=== PATIENT | male | born 1950 | race Caucasian/White ===

== ENCOUNTER → 2016-07-13 | Outpatient (CLI) | payer MEDICARE, BC ==
[2016-07-13 10:47] LABS: Potassium 4.9 mmol/L (3.5-5.1)
== END | disposition home or self-care (01) ==
LOC: LABWHC1 09:22
PROVIDERS: ATTEND Internal Medicine Cardiovascular Disease
DX: I48.2 Chronic atrial fibrillation (principal)
CPT/HCPCS: 36415; 80051; 82565; 84520

== ENCOUNTER 2016-07-22 07:49 | Day surgery (SDC) | payer MEDICARE, BC ==
[2016-07-16 14:49] VITALS: BMI 38.4
[~2016-07-22 07:49] MED LIST: LACTATED RINGERS 1,000 ML IV SCH; LIDOCAINE 1% 20 ML VIAL (10MG/ML) FOR IV START INTRADERMA PRN; SODIUM CHLORIDE 0.9% 1,000 ML IV SCH
[2016-07-22 08:25] LABS: Glucose,Whole Blood 126 mg/dL (75-99)
[2016-07-22 08:31] VITALS: TEMP 98.3
[2016-07-22] MEDS: BENZOCAINE SPRAY 100 APPLIC/CAN MUCOUS MEM ONE ×3 (08:42→09:00)
[2016-07-22] MEDS ORDERED: BENZOCAINE SPRAY 100 APPLIC/CAN MUCOUS MEM ONE ×2 (08:50→09:00)
[2016-07-22] MEDS ORDERED: PROPOFOL 10 MG/ML 20 ML VIAL IV ONE (08:51)
[2016-07-22] MEDS ORDERED: IV FLUID CONTINUATION 350 ML IV ONE (08:59)
[2016-07-22] MEDS ORDERED: SODIUM CHLORIDE 0.9% 1,000 ML IV SCH (09:15)
--- NOTE | 2016-07-22 09:49 | ECHOT ---
DATE OF SERVICE: PROCEDURE: Transesophageal echocardiogram. INDICATION: Persistent atrial fibrillation. The patient was advised to undergo transesophageal echo to rule out intercardiac thrombus prior to cardioversion. Patient had been explained of risks, benefits, and alternatives. He was anesthetized by the life science technician. FINDINGS: 1. There is no thrombus within the left atrial appendage, left atrium, right atrium, left ventricle or right ventricle. 2. Left ventricle has normal size and systolic function. 3. Mitral valve appears anatomically normal. There is mild central mitral regurgitation noted. 4. Aortic valve is a 3-leaflet valve. There is mild aortic regurgitation noted. 5. There is mild tricuspid regurgitation noted. 6. Interatrial septum, there is no evidence of [id number] shunt by color flow Doppler or [id number] shunt by agitated saline contrast study. 7. Aortic root appears normal. There are mild atherosclerotic changes within the aorta. CONCLUSION: No intracardiac thrombus. PLAN: Patient will undergo cardioversion.
--- NOTE | 2016-07-22 09:52 | PCN ---
DATE OF PROCEDURE: INDICATIONS: Persistent atrial fibrillation. The patient underwent electrical cardioversion with 300 joules of synchronized DC current, converted to sinus rhythm. He been adequately anticoagulated with Xarelto. The patient has chronic renal insufficiency. The Xarelto dose had been adjusted for his renal insufficiency, was on 15 mg b.i.d. but I am going to change it to 15 mg daily.
[2016-07-22 10:09] VITALS: RESP 16
[2016-07-22 11:01] VITALS: BP 139/63; PULSE 60
[2016-07-23] MEDS ORDERED: ATENOLOL 25 MG TAB PO SCH (09:00)
== END 2016-07-22 11:00 | disposition home or self-care (01) ==
LOC: CATHCVL 07:49
PROVIDERS: ATTEND Internal Medicine Cardiovascular Disease
DX: I48.1 Persistent atrial fibrillation (principal); I08.3 Combined rheumatic disorders of mitral, aortic and tricuspid valves; I12.9 Hypertensive chronic kidney disease with stage 1 through stage 4 chronic kidney disease, or unspecified chronic kidney disease; N18.9 Chronic kidney disease, unspecified; E11.9 Type 2 diabetes mellitus without complications; E78.2 Mixed hyperlipidemia; Z79.01 Long term (current) use of anticoagulants; Z79.84 Long term (current) use of oral hypoglycemic drugs; Z79.899 Other long term (current) drug therapy; Z87.891 Personal history of nicotine dependence
CPT/HCPCS: 93312; 93320; 93005; 93325; 92960; J2704; 99152

== ENCOUNTER → 2018-01-06 | Outpatient (CLI) | payer BC, MEDICARE ==
--- NOTE | 2018-01-06 17:26 | PN ---
PROGRESS NOTE DATE OF SERVICE: 01/06/2018 67-year-old gentleman has been followed in Sleep Center for treatment of obstructive sleep apnea-hypopnea syndrome. Patient successfully continued to use his CPAP equipment only, has problem with his full face mask. [place] Sleepiness Scale today is 2. I checked his BiPAP unit. BiPAP pressure is 26/16 cm of water. The patient does not have any problem with the pressure usage. He is on 28/30 nights for more than 4 hours, average 5.9 hours, which is normal compliant record. Apnea-hypopnea index is only 2.0, which is perfect. At the same time, significant leak from the mask 47 L/minute. MEDICATIONS: Insulin, Eliquis, Clonidine, fenofibrate, montelukast, Atorvastatin, Atenolol, Doxazosin, benazepril, omeprazole. PHYSICAL EXAM: Patient in no distress. BP 138/62, HR 67, RR 16, height 5 feet 4 inches, weight 227.8, BMI 38.9, temperature 98.4, oxygen saturation on room air 98%. Oropharynx low position of soft palate. Neck Supple, no JVD. Thyroid is not palpable. LUNGS Clear to percussion and to auscultation. Good air exchange. No wheezing or rhonchi. HEART S1, S2 regular. No murmurs, gallops, or rubs. ABDOMEN Soft and nontender. Bowel sounds are present. No organomegaly appreciated. EXTREMITIES No clubbing or cyanosis. IRRIGATION LABORER Awake, alert, and oriented X3. Cranial nerves 2 to 7 intact. There is no fasciculation or atrophy. noted. No focal deficits observed. IMPRESSION: 1. Obstructive sleep apnea-hypopnea syndrome on control with BiPAP at 20-16 cm of water. Patient demonstrated great compliance with treatment benefitting from treatment. 2. Hypertension. 3. Obesity. 4. Allergy. 5. History of hayfever. 6. Diabetes mellitus. PLAN: 1. Patient was fitted with a different full-face mask. We will write a prescription for AirFit P20, medium size. 2. Continue to use CPAP equipment every night. 3. Losing weight. 4. Sleep hygiene with regular time in bed for at least 8 hours. 5. Prescription for all necessary supplies. 6. Followup visit in 1 year or earlier if patient has any problems. Thank you very much for allowing me to participate in management of your patient. Sincerely, Jose Maria Hodge MD, PhD, FAASM Diplomat of [place] [employer] [place] [employer] Senior Office Assistant of [facility] [place] M[employer]INA / YSABEL: [id number] /
== END | disposition home or self-care (01) ==
LOC: SLEEP 13:36
PROVIDERS: ATTEND Internal Medicine
DX: G47.33 Obstructive sleep apnea (adult) (pediatric) (principal); I10 Essential (primary) hypertension; T78.40XA Allergy, unspecified, initial encounter; E11.9 Type 2 diabetes mellitus without complications; E66.9 Obesity, unspecified; Z68.38 Body mass index [BMI] 38.0-38.9, adult; Z79.4 Long term (current) use of insulin; Z87.09 Personal history of other diseases of the respiratory system; Z79.01 Long term (current) use of anticoagulants; Z79.899 Other long term (current) drug therapy

== ENCOUNTER 2018-09-27 01:53 | Emergency (ER) | payer MEDICARE ==
[2018-09-27 02:05] VITALS: TEMP 97.1
[2018-09-27] MEDS ORDERED: MORPHINE SULFATE 4 MG/ML SYRINGE IV STA (02:25)
[2018-09-27] MEDS ORDERED: ONDANSETRON 4 MG/2 ML VIAL IVP STA (02:25)
[2018-09-27] MEDS ORDERED: SODIUM CHLORIDE 0.9% 500 ML 500 ML IV STA (02:25)
[2018-09-27] MEDS ORDERED: ONDANSETRON 4 MG/2 ML VIAL IM STA (02:58)
[2018-09-27] MEDS ORDERED: MORPHINE SULFATE 4 MG/ML SYRINGE IM STA (02:58)
[2018-09-27 03:20] LABS: Albumin 4.9 g/dL (3.5-5.0); Calcium 10.3 mg/dL (8.4-10.2); Potassium 4.7 mmol/L (3.5-5.1); Total Protein 7.9 g/dL (6.3-8.2)
[2018-09-27 03:25] LABS: Basophils % (A) 0 %; Eosinophils % (A) 0 %; HCT 41.7 % (39.0-53.0); HGB 14.4 gm/dL (13.0-17.5); Lymphocytes # (A) 0.7 k/uL (1.0-4.8); Lymphocytes % (A) 5 %; MCH 30.5 pg (25.0-35.0); MCHC 34.7 g/dL (31.0-37.0); Mean Platelet Volume 7.1; Monocytes # (A) 0.5 k/uL (0-1.0); Monocytes % (A) 3 %; Neutrophils # (A) 12.2 k/uL (1.3-7.7); Neutrophils % (A) 90 %; Platelet Count 258 k/uL (150-450); RBC 4.73 m/uL (4.30-5.90); RDW 13.9 % (11.5-15.5); WBC 13.5 k/uL (3.8-10.6)
--- NOTE | 2018-09-27 04:18 | ED ---
Nausea/Vomiting/Diarrhea HPI - General Source: patient Mode of arrival: wheelchair Limitations: no limitations <Blanche Montes - Last Filed: 09/27/18 05:43> <Ninoska Mathur - Last Filed: 09/27/18 07:19> - General Chief complaint: Nausea/Vomiting/Diarrhea Stated complaint: Abdominal Pain Time Seen by Provider: 09/27/18 02:10 - History of Present Illness Initial comments: 67-year-old male patient presents to the emergency department today for evaluation of upper abdominal pain. Patient states that pain started around 8 PM and his back and has now moved to his abdomen. Patient states he is nauseated but has not vomited. He denies any difficulty with bowel movements or urination. Patient describes the pain is intense cramp/stabbing type pain. Patient states he has had appendectomy in the past. He denies any hematochezia or melena. States his bowel movements have been normal. Denies any fever or chills. Patient denies any recent rash, shortness breath, chest pain, back pain, numbness, tingling, dizziness, weakness, hematuria, dysuria, urinary urgency, urinary frequency, headache, visual changes, or any other complaints. (Blanche Montes) - Related Data Home Medications Medication Instructions Recorded Confirmed Benazepril HCl 20 mg PO DAILY 07/16/16 07/22/16 Cholecalciferol [Vitamin D3] 2,000 unit PO DAILY 07/16/16 07/22/16 Exenatide Microspheres [Bydureon] 2 mg SQ WEEKLY 07/16/16 07/22/16 Fenofibrate Nanocrystallized 145 mg PO DAILY 07/16/16 07/22/16 [Fenofibrate] Furosemide [Lasix] 20 mg PO DAILY 07/16/16 07/22/16 Montelukast [Singulair] 10 mg PO HS 07/16/16 07/22/16 Multivitamin [Men's Multi-Vitamin] 1 each PO DAILY 07/16/16 07/22/16 [place]-3/Dha/Epa/Fish Oil [Fish Oil 2 each PO DAILY 07/16/16 07/22/16 500 mg Softgel] Pioglitazone [Actos] 15 mg PO DAILY 07/16/16 07/22/16 Rivaroxaban [Xarelto] 15 mg PO DAILY 07/16/16 07/22/16 Rosuvastatin Calcium 40 mg PO DAILY MDD 0600 07/16/16 07/22/16 glipiZIDE XL [Glucotrol Xl] 10 mg PO DAILY 07/16/16 07/22/16 Atenolol [Tenormin] 25 mg PO DAILY 07/22/16 07/22/16 Previous Rx's Medication Instructions Recorded Lidocaine [Aspercreme Patch] 1 patch TRANSDERM DAILY #30 patch 09/27/18 Methocarbamol [Robaxin-750] 750 mg PO TID #30 tablet 09/27/18 Allergies Allergy/AdvReac Type Severity Reaction Status Date / Time No Known Allergies Allergy Verified 09/27/18 02:05 Review of Systems ROS Other: All systems not noted in ROS Statement are negative. <Blanche Montes - Last Filed: 09/27/18 05:43> ROS Other: All systems not noted in ROS Statement are negative. <Ninoska Mathur - Last Filed: 09/27/18 07:19> ROS Statement: Those systems with pertinent positive or pertinent negative responses have been documented in the HPI. Past Medical History Past Medical History: Atrial Fibrillation, Diabetes Mellitus, Hyperlipidemia, Hypertension, Sleep Apnea/CPAP/BIPAP History of Any Multi-Drug Resistant Organisms: None Reported Past Surgical History: Appendectomy Past Anesthesia/Blood Transfusion Reactions: No Reported Reaction Past Psychological History: No Psychological Hx Reported Smoking Status: Never smoker Past Alcohol Use History: None Reported Past Drug Use History: None Reported - Past Family History Mother Family Medical History: Deep Vein Thrombosis (DVT), Myocardial Infarction ([place]), Pulmonary Embolus Father Family Medical History: Myocardial Infarction ([place]) <Blanche Montes - Last Filed: 09/27/18 05:43> General Exam Limitations: no limitations General appearance: alert, in no apparent distress, other (Physical well-developed, well-nourished adult male patient in no acute distress. Vital signs upon presentation are temperature 97.1F, pulse 83, respirations 20, blood pressure 192/70, pulse ox 97% on room air.) Eye exam: Present: normal appearance, PERRL, EOMI. Absent: scleral icterus, conjunctival injection, periorbital swelling ENT exam: Present: normal exam, normal oropharynx, mucous membranes moist Respiratory exam: Present: normal lung sounds bilaterally. Absent: respiratory distress, wheezes, rales, rhonchi, stridor Cardiovascular Exam: Present: regular rate, normal rhythm, normal heart sounds. Absent: systolic murmur, diastolic murmur, rubs, gallop, clicks GI/Abdominal exam: Present: soft, tenderness (Midepigastric and left upper quadrant tenderness), normal bowel sounds. Absent: distended, guarding, rebound, rigid Neurological exam: Present: alert, oriented X3, CN II-XII intact Psychiatric exam: Present: normal affect, normal mood Skin exam: Present: warm, dry, intact, normal color. Absent: rash <Blanche Montes - Last Filed: 09/27/18 05:43> Course Vital Signs 09/27/18 09/27/18 09/27/18 01:59 04:00 05:00 Temperature 97.1 F L Pulse Rate 83 75 81 Respiratory 20 20 18 Rate Blood Pressure 192/70 163/55 168/68 O2 Sat by Pulse 97 97 97 Oximetry 09/27/18 06:00 Temperature Pulse Rate 85 Respiratory 18 Rate Blood Pressure 167/87 O2 Sat by Pulse 97 Oximetry Medical Decision Making - Lab Data Result diagrams: 09/27/18 02:53 09/27/18 02:53 - EKG Data -: EKG Interpreted by Me - Radiology Data Radiology results: report reviewed, image reviewed <Blanche Montes - Last Filed: 09/27/18 05:43> - Lab Data Result diagrams: 09/27/18 02:53 09/27/18 02:53 <Ninoska Mathur - Last Filed: 09/27/18 07:19> - Medical Decision Making Patient care was signed out to me by Simon - SHAKER TENDER Patient presented with back/flank pain, nausea and vomiting. He has normal labs, CT with no acute findings, he received nausea medications and pain medication. I re-evaluated the patient, he reported feeling somewhat better, concerned he has a muscle spasm or pinched nerve in his back. I ordered toradol and valium. I re-evaluated the patient after additional medications. He was sleeping, upon waking he reports feeling much better. At this time he is comfortable with plan for discharge home with muscle relaxor, I will also give lidocaine patch for muscular pain. All questions pertaining to care were answered, return parameters were discussed and the patient was discharged home in stable condition (Ninoska Mathur) - Lab Data Lab Results 09/27/18 09/27/18 09/27/18 Range/Units 02:53 02:53 02:53 WBC 13.5 H (3.8-10.6) k/uL RBC 4.73 (4.30-5.90) m/uL Hgb 14.4 (13.0-17.5) gm/dL Hct 41.7 (39.0-53.0) % MCV 88.0 (80.0-100.0) fL MCH 30.5 (25.0-35.0) pg MCHC 34.7 (31.0-37.0) g/dL RDW 13.9 (11.5-15.5) % Plt Count 258 (150-450) k/uL Neutrophils % 90 % Lymphocytes % 5 % Monocytes % 3 % Eosinophils % 0 % Basophils % 0 % Neutrophils # 12.2 H (1.3-7.7) k/uL Lymphocytes # 0.7 L (1.0-4.8) k/uL Monocytes # 0.5 (0-1.0) k/uL Eosinophils # 0.0 (0-0.7) k/uL Basophils # 0.0 (0-0.2) k/uL Sodium 138 (137-145) mmol/L Potassium 4.7 (3.5-5.1) mmol/L Chloride 100 (98-107) mmol/L Carbon Dioxide 21 L (22-30) mmol/L Anion Gap 17 mmol/L BUN 37 H (9-20) mg/dL Creatinine 1.94 H (0.66-1.25) mg/dL Est GFR (CKD-EPI)AfAm 40 (>60 ml/min/1.73 sqM) Est GFR (CKD-EPI)NonAf 35 (>60 ml/min/1.73 sqM) Glucose 258 H (74-99) mg/dL Plasma Lactic Acid Benjy 1.6 (0.7-2.0) mmol/L Calcium 10.3 H (8.4-10.2) mg/dL Total Bilirubin 1.0 (0.2-1.3) mg/dL AST 37 (17-59) U/L ALT 33 (21-72) U/L Alkaline Phosphatase 60 (38-126) U/L Troponin I (0.000-0.034) ng/mL Total Protein 7.9 (6.3-8.2) g/dL Albumin 4.9 (3.5-5.0) g/dL Amylase 48 (30-110) U/L Lipase 155 (23-300) U/L Urine Color Urine Appearance (Clear) Urine pH (5.0-8.0) Ur Specific [place] (1.001-1.035) Urine Protein (Negative) Urine Glucose (UA) (Negative) Urine Ketones (Negative) Urine Blood (Negative) Urine Nitrite (Negative) Urine Bilirubin (Negative) Urine Urobilinogen (<2.0) mg/dL Ur Leukocyte Esterase (Negative) Urine RBC (0-5) /hpf Urine WBC (0-5) /hpf Ur Squamous Epith Cells (0-4) /hpf Urine Mucus (None) /hpf 09/27/18 09/27/18 Range/Units 02:53 05:30 WBC (3.8-10.6) k/uL RBC (4.30-5.90) m/uL Hgb (13.0-17.5) gm/dL Hct (39.0-53.0) % MCV (80.0-100.0) fL MCH (25.0-35.0) pg MCHC (31.0-37.0) g/dL RDW (11.5-15.5) % Plt Count (150-450) k/uL Neutrophils % % Lymphocytes % % Monocytes % % Eosinophils % % Basophils % % Neutrophils # (1.3-7.7) k/uL Lymphocytes # (1.0-4.8) k/uL Monocytes # (0-1.0) k/uL Eosinophils # (0-0.7) k/uL Basophils # (0-0.2) k/uL Sodium (137-145) mmol/L Potassium (3.5-5.1) mmol/L Chloride (98-107) mmol/L Carbon Dioxide (22-30) mmol/L Anion Gap mmol/L BUN (9-20) mg/dL Creatinine (0.66-1.25) mg/dL Est GFR (CKD-EPI)AfAm (>60 ml/min/1.73 sqM) Est GFR (CKD-EPI)NonAf (>60 ml/min/1.73 sqM) Glucose (74-99) mg/dL Plasma Lactic Acid Benjy (0.7-2.0) mmol/L Calcium (8.4-10.2) mg/dL Total Bilirubin (0.2-1.3) mg/dL AST (17-59) U/L ALT (21-72) U/L Alkaline Phosphatase (38-126) U/L Troponin I <0.012 (0.000-0.034) ng/mL Total Protein (6.3-8.2) g/dL Albumin (3.5-5.0) g/dL Amylase (30-110) U/L Lipase (23-300) U/L Urine Color Light Yellow Urine Appearance Clear (Clear) Urine pH 5.0 (5.0-8.0) Ur Specific [place] 1.022 (1.001-1.035) Urine Protein 1+ H (Negative) Urine Glucose (UA) 4+ H (Negative) Urine Ketones 1+ H (Negative) Urine Blood Negative (Negative) Urine Nitrite Negative (Negative) Urine Bilirubin Negative (Negative) Urine Urobilinogen <2.0 (<2.0) mg/dL Ur Leukocyte Esterase Negative (Negative) Urine RBC <1 (0-5) /hpf Urine WBC <1 (0-5) /hpf Ur Squamous Epith Cells <1 (0-4) /hpf Urine Mucus Rare H (None) /hpf - EKG Data EKG Comments: EKG obtained at 02 41 shows normal sinus rhythm with a ventricular rate of 80, WV interval 174, QRS duration 90, QT 394, QTC 454. No evidence of ST elevation or depression (Blanche Montes) - Radiology Data CT of the chest, abdomen, pelvis without contrast was obtained. Report was reviewed in its entirety. Impression by Dr. NARANJO shows no acute cardiopulmonary disease. Cholelithiasis. No other evidence for acute inflammatory disease or bowel obstruction. (Blanche Montes) Disposition <Blanche Montes - Last Filed: 09/27/18 05:43> Is patient prescribed a controlled substance at d/c from ED?: No <Ninoska Mathur - Last Filed: 09/27/18 07:19> Clinical Impression: Back pain Disposition: HOME SELF-CARE Condition: Stable Instructions (If sedation given, give patient instructions): Acute Nausea and Vomiting (ED) Prescriptions: Lidocaine [Aspercreme Patch] 1 patch TRANSDERM DAILY #30 patch Methocarbamol [Robaxin-750] 750 mg PO TID #30 tablet Referrals: Lynda Flynn DO [Primary Care Provider] - 1-2 days
--- NOTE | 2018-09-27 04:47 | CT ---
EXAM: CT Chest Without Intravenous Contrast CLINICAL HISTORY: ITS.REASON CT Reason: Pain TECHNIQUE: Axial computed tomography images of the chest without intravenous contrast. CTDI is 13.4 mGy and DLP is 727.2 mGy-cm. This CT exam was performed using one or more of the following dose reduction techniques: automated exposure control, adjustment of the mA and/or kV according to patient size, and/or use of iterative reconstruction technique. COMPARISON: No relevant prior studies available. FINDINGS: Lungs: Unremarkable. No mass. No consolidation. Pleural space: Unremarkable. No pneumothorax. No significant effusion. Heart: Multivessel coronary calcifications. No cardiomegaly or pericardial effusion. Bones/joints: Unremarkable. No acute fracture. No dislocation. Soft tissues: Unremarkable. Vasculature: Unremarkable. No thoracic aortic aneurysm. Lymph nodes: Unremarkable. No enlarged lymph nodes. IMPRESSION: No acute cardiopulmonary disease. EXAM: CT Abdomen and Pelvis Without Intravenous Contrast CLINICAL HISTORY: ITS.REASON CT Reason: Pain TECHNIQUE: Axial computed tomography images of the abdomen and pelvis without intravenous contrast. CTDI is 13.4 mGy and DLP is 727.2 mGy-cm. This CT exam was performed using one or more of the following dose reduction techniques: automated exposure control, adjustment of the mA and/or kV according to patient size, and/or use of iterative reconstruction technique. COMPARISON: No relevant prior studies available. FINDINGS: Cholelithiasis with possible distention of the gallbladder. No wall thickening or surrounding fluid or inflammation. Lung bases: Unremarkable. No mass. No consolidation. ABDOMEN: Liver: Unremarkable. Gallbladder and bile ducts: FINDINGS: Cholelithiasis with possible mild distention of the gallbladder. No wall thickening or surrounding fluid or inflammation. Pancreas: Unremarkable. No ductal dilation. No biliary ductal dilatation. Spleen: Unremarkable. No splenomegaly. Adrenals: Dense calcinations involving the right adrenal gland from previous Kidneys and ureters: Unremarkable. No obstructing stones. No hydronephrosis. Stomach and bowel: Distal colonic diverticulosis. No acute diverticulitis or colitis. No obstruction. PELVIS: Appendix: No findings to suggest acute appendicitis. Bladder: Unremarkable. No stones. Reproductive: Unremarkable as visualized. ABDOMEN and PELVIS: Intraperitoneal space: Previous hemorrhage or infection. No free air. Bones/joints: No acute fracture. No dislocation. Soft tissues: Unremarkable. Vasculature: Unremarkable. No abdominal aortic aneurysm. Lymph nodes: Unremarkable. No enlarged lymph nodes. IMPRESSION: Cholelithiasis. No other evidence for acute or inflammatory disease or bowel obstruction.
[2018-09-27 05:25] VITALS: RESP 18
[2018-09-27] MEDS ORDERED: MAG HYDROX/AL HYDROX/SIMETH 30 ML, HYOSCYAMINE ELIXIR 10 ML, CIMETIDINE HCL 300 MG, LID... PO STA ×4 (05:32)
[2018-09-27 05:45] LABS: Appearance,Urine Clear (Clear); Bilirubin,Urine Negative (Negative); Blood,Urine Negative (Negative); Color,Urine Light Yellow; Glucose,Urine (UA) 4+ (Negative); Ketones,Urine 1+ (Negative); Leukocyte Esterase,Urine Negative (Negative); Mucus,Urine Rare /hpf; Nitrite,Urine Negative (Negative); Protein,Urine 1+ (Negative); RBC,Urine <1 /hpf (0-5); Specific Gravity,Urine 1.022 (1.001-1.035); Squamous Epithelial Cell,Urine <1 /hpf (0-4); Urobilinogen,Urine <2.0 mg/dL (<2.0); WBC,Urine <1 /hpf (0-5)
[2018-09-27] MEDS ORDERED: DIAZEPAM 5 MG TAB PO STA (06:12)
[2018-09-27] MEDS ORDERED: KETOROLAC 30 MG/ML 1 ML VIAL IM STA (06:12)
[2018-09-27 06:27] VITALS: BP 167/87; PULSE 85
== END 2018-09-27 07:04 | disposition home or self-care (01) ==
LOC: EC 01:53
DX: M54.9 Dorsalgia, unspecified (principal); K80.20 Calculus of gallbladder without cholecystitis without obstruction; R10.10 Upper abdominal pain, unspecified; R11.2 Nausea with vomiting, unspecified; I48.91 Unspecified atrial fibrillation; E11.9 Type 2 diabetes mellitus without complications; E78.5 Hyperlipidemia, unspecified; I10 Essential (primary) hypertension; G47.30 Sleep apnea, unspecified; Z79.01 Long term (current) use of anticoagulants; Z79.84 Long term (current) use of oral hypoglycemic drugs; Z79.899 Other long term (current) drug therapy; Z90.49 Acquired absence of other specified parts of digestive tract; Z99.89 Dependence on other enabling machines and devices
CPT/HCPCS: 36415; 93005; 80053; 82150; 83605; 83690; 84484; 85025; 81001; 71275; 74174; 99284; 96360; 96361; 96372 ×3; J2270; J2405; J1885; Q9967

== ENCOUNTER → 2019-01-05 | Outpatient (CLI) | payer MEDICARE ==
--- NOTE | 2019-01-05 20:04 | PN ---
PROGRESS NOTE DATE OF SERVICE: 01/05/2019 This 68-year-old gentleman who has been followed in Sleep Center for treatment of obstructive sleep apnea-hypopnea syndrome. The patient successfully continued to use his CPAP equipment every night for the whole night without significant problems. No snoring with the machine. [place] Sleepiness Scale today is 3, which is normal. I checked patient's BiPAP unit. BiPAP pressure is 26/16 cm of water. Usage is every night for more than 4 hours with average usage 6.4 hours. Leak is quite high 37 L/minute, but for the full-face mask it is acceptable and apnea-hypopnea index only 1.61. MEDICATIONS: Insulin, Eliquis, clonidine, fenofibrate, montelukast, atorvastatin, atenolol, Doxazosin, benazepril, omeprazole. PHYSICAL EXAM: Patient in no distress. BP 127/80, HR 84, RR 16, height 5 feet 4 inches, weight 224 pounds which is 3 pounds less than during last visit, temperature 98.0, oxygen saturation at room air 96%. HEENT: Oropharynx: Low position of soft palate. Mallampati 4. Neck Supple, no JVD. Thyroid is not palpable. LUNGS Clear to percussion and to auscultation. Good air exchange. No wheezing or rhonchi. HEART S1, S2 regular. No murmurs, gallops, or rubs. ABDOMEN: Obese. Soft and nontender. Bowel sounds are present. No organomegaly appreciated. EXTREMITIES No clubbing or cyanosis. NAVY DIVER Awake, alert, and oriented X3. Cranial nerves 2 to 7 intact. There is no fasciculation or atrophy. noted. No focal deficits observed. IMPRESSION: 1. Obstructive sleep apnea-hypopnea syndrome. Patient demonstrated 100% compliance with treatment benefitting from BiPAP therapy. 2. Hypertension. 3. Obesity. 4. Allergy. 5. History of hay fever. 6. Diabetes mellitus. PLAN: 1. Patient will continue to use BiPAP equipment every night for the whole night. 2. Losing weight. 3. Sleep hygiene with regular time in bed for at least 7.5 hours. 4. Prescription for all necessary CPAP supplies including mask, tube, filters. 5. No driving if feeling sleepiness. 6. Followup visit in 1 year or earlier if patient has any problems. Thank you very much for allowing me to participate in management of your patient. Sincerely, Jose Maria Hodge MD, PhD, FAASM Diplomat of [place] [employer] [place] [employer] Roll Shop Supervisor of [facility] [place] M[employer]AR[facility] / YSABEL: [id number] /
== END | disposition home or self-care (01) ==
LOC: SLEEP 15:22
PROVIDERS: ATTEND Internal Medicine
DX: G47.33 Obstructive sleep apnea (adult) (pediatric) (principal); I10 Essential (primary) hypertension; E66.9 Obesity, unspecified; T78.40XA Allergy, unspecified, initial encounter; E11.9 Type 2 diabetes mellitus without complications; Z87.898 Personal history of other specified conditions; Z99.89 Dependence on other enabling machines and devices; Z79.4 Long term (current) use of insulin; Z79.01 Long term (current) use of anticoagulants

== ENCOUNTER → 2021-10-01 | Outpatient (CLI) | payer MEDICARE ==
--- NOTE | 2021-10-01 18:39 | SFUN ---
SLEEP CENTER FOLLOW UP NOTE DATE OF SERVICE: 10/01/2021 This 70-year-old gentleman has been followed in Sleep Center for treatment of obstructive sleep apnea-hypopnea syndrome. The patient continues to use his BiPAP equipment every night. He sleeps well with the machine and is getting his supplies on time. [place] Sleepiness Scale today is 4. I checked his BiPAP unit. Pressure is 20/16 cm of water, usage 27/30 nights for more than 4 hours, average 6.9 hours per night, which is good compliance. Leak is slightly high at 38 L/minute. At the same time, apnea-hypopnea index is only 2.2, which is totally normal. MEDICATIONS: 1. Lantus 22 units. 2. Trulicity. 3. Fenofibrate 145 mg once a day. 4. Eliquis 5 mg twice a day. 5. Metoprolol 100 mg once a day. 6. Atorvastatin 20 mg once a day. 7. Lisinopril 5 mg once a day. 8. 4 mg once a day. 9. Omeprazole 40 mg once a day. 10.Nifedipine 30 mg once a day. 11.Montelukast 10 mg once a day. PHYSICAL EXAMINATION: GENERAL: Pleasant patient in no distress. VITAL SIGNS: BP 179/76, HR 84, RR 14, height 5 feet 4-1/4 inches, weight 229 pounds, body mass index 39, temperature 97.0. Oxygen saturation at room air 96%. HEENT: PERRLA, EOMI, evaluation of oropharynx showed tongue protrudes midline. Extremely low position of soft palate; Mallampati IV. NECK: Supple, no JVD. Thyroid is not palpable. LUNGS: Clear to percussion and to auscultation. Good air exchange. No wheezing or rhonchi. HEART: S1, S2 regular. No murmurs, gallops, or rubs. ABDOMEN: Obese. EXTREMITIES: No clubbing or cyanosis. IRON INSTALLER: Awake, alert, and oriented X3. Cranial nerves 2 to 7 intact. There is no fasciculation or atrophy. noted. No focal deficits observed. IMPRESSION: 1. Obstructive sleep apnea-hypopnea syndrome. Patient demonstrated great compliance with treatment, benefitting from treatment. 2. Hypertension. 3. Obesity. 4. Allergies. 5. Diabetes mellitus. 6. History of hayfever. PLAN: 1. Patient will continue to use PAP equipment every night for the whole night. 2. Sleep hygiene with regular time in bed for at least 7-1/2 to 8 hours. 3. Precautions related to driving. No driving if feeling sleepiness. 4. I will maintain all necessary prescription for PAP supplies including mask, tube, filters. 5. Watching weight. 6. Follow-up visit in 6 months or earlier if patient has any problems. 7. Replace air filter. Thank you very much for allowing me to participate in the management of your patient. Sincerely, Jose Maria Hodge MD, PhD, FAASM Diplomat of [place] [employer] Sleep Medicine Board of [place] [employer] Supervisor of [facility] [place] MMCARINA / RJN: [id number] /
== END ==
LOC: SLEEP 14:56
PROVIDERS: ATTEND Internal Medicine
DX: G47.33 Obstructive sleep apnea (adult) (pediatric) (principal); T78.40XA Allergy, unspecified, initial encounter; E11.9 Type 2 diabetes mellitus without complications; I10 Essential (primary) hypertension; E66.9 Obesity, unspecified; Z79.4 Long term (current) use of insulin; Z99.89 Dependence on other enabling machines and devices; Z68.39 Body mass index [BMI] 39.0-39.9, adult

== ENCOUNTER → 2022-04-23 | Outpatient (CLI) | payer MEDICARE ==
--- NOTE | 2022-04-23 10:53 | P.PN ---
Subjective DATE: 04/23/2022 FOLLOW UP VISIT. Patient with obstructive sleep apnea hypopnea syndrome return to sleep center for follow-up visit. Information from previous visit have been reviewed. Patient is using PAP equipment every night for the whole night, getting PAP supplies in time. The patient does not have significant problems with the mask, BIPAP unit and humidification. [place] sleepiness scale is 2, which is perfect. I checked BIPAP unit. BIPAP unit pressure 20/16 cm H2O. Usage is 100 % for more then 4 hours, average 7.2 hours per night. Leak is 22 l/m, which is in acceptable range. Apnea Hypopnea Index is 1.6, which is normal. MEDICATIONS:1. Fenofibrate 145 mg once a day 2. Atorvastatin 20 mg once a day 3. Lisinopril 5 mg once a day 4. Metoprolol 100 mg once a day 5. Doxazosin 4 mg once a day 6. Nifedipine 30 mg once a day 7. Omeprazole 40 mg once a day 8. Eliquis 5 mg twice a day During physical exam: GENERAL: A pleasant patient without any distress. VITAL SIGNS: BP 149/73, HR 89, RR 16 , weight 238.0, temperature 97.1, oxygen saturation at room air 97 % . HEENT: PERRLA, EOMI.low position of soft palate, Mallapati 4 . NECK: Supple. No JVD. LUNGS: Clear to percussion and to auscultation. Good air exchange. No wheezing or rhonchi. HEART: S1, S2 regular. ABDOMEN: Soft and nontender. Obese EXTREMITIES: No clubbing or cyanosis. EDUCATION COUNSELOR: Awake, alert, and oriented x3. No focal deficit. Impressions: 1. Obstructive sleep apnea-hypopnea syndrome. Patient demonstrated great compliance with treatment, benefiting from treatment. 2. Obesity patient increased his weight when about 9 pounds. 3. Hypertension. 4. Diabetes mellitus. 5. ALLERGIES. 6. History of hayfever. 7. History of prostate CA diagnosed in 2021. 8. Status post cholecystectomy in 2020. Plan: 1. Continue using PAP equipment every night for the whole night. 2. To change air filter at least 1-2 times per month. 3. PAP unit should stay lower then position of the head. 4. Advised patient to remove all remaining water from humidifier canister daily and make it dry after each usage. Refill canister with fresh distilled water before each usage. 5. Sleep hygiene with regular time in bed for at least 8 hours. 6. Precautions related to driving. No driving if feel any sleepiness. 7. I will maintain prescription for PAP supplies including mask, tube, filters. 8. Follow up visit in 6 months or earlier if patient has any problems. 9. Watching and losing weight. Thank you very much for allowing me to participate in the management of your patient. Jose Maria Hodge MD, PhD, FAASM. Diplomat of [employer], Sleep Medicine Board by [employer] Diesel Trailer Mechanic of [facility] [place]
== END ==
LOC: SLEEP 10:08
PROVIDERS: ATTEND Internal Medicine
DX: G47.33 Obstructive sleep apnea (adult) (pediatric) (principal); Z99.89 Dependence on other enabling machines and devices; E11.9 Type 2 diabetes mellitus without complications; I10 Essential (primary) hypertension; E66.9 Obesity, unspecified; Z87.09 Personal history of other diseases of the respiratory system; Z85.46 Personal history of malignant neoplasm of prostate; Z90.49 Acquired absence of other specified parts of digestive tract; Z79.899 Other long term (current) drug therapy; Z79.84 Long term (current) use of oral hypoglycemic drugs
CPT/HCPCS: 99212

== ENCOUNTER → 2022-11-05 | Outpatient (CLI) | payer MEDICARE ==
--- NOTE | 2022-11-05 10:57 | P.PN ---
Subjective DATE: 11/05/2022 FOLLOW UP VISIT. Patient with obstructive sleep apnea hypopnea syndrome return to sleep center for follow-up visit. Information from previous visit have been reviewed. Patient is using PAP equipment every night for the whole night, getting PAP supplies in time. The patient does not have significant problems with the mask, BPAP unit and humidification. [place] sleepiness scale is 4, which is normal. I checked information from BPAP unit. BPAP unit pressure 20/16 cm H2O. Usage is 100 % for more then 4 hours, average 6.7 hours per night. Leak is 25 l/m, which is in acceptable range. Apnea Hypopnea Index is 1.7, which is normal. MEDICATIONS:1. Lantus 2. Eliquis 5 mg twice a day 3. Atorvastatin 20 mg once a day 4. Lisinopril 5 mg once a day 5. Metoprolol 100 mg once a day 6. Doxazosin 4 mg once a day 7. Nifedipine 30 mg once a day 8. Omeprazole 40 mg once a day During physical exam: GENERAL: A pleasant patient without any distress. VITAL SIGNS: BP 143/76, HR 79, RR 14 , weight 229.2, temperature 97.9, oxygen saturation at room air 97 % . HEENT: PERRLA, EOMI.low position of soft palate, Mallapati 4 . NECK: Supple. No JVD. LUNGS: Clear to percussion and to auscultation. Good air exchange. No wheezing or rhonchi. HEART: S1, S2 regular. ABDOMEN: Soft and nontender. Slightly obese EXTREMITIES: No clubbing or cyanosis. PHP CONSULTANT: Awake, alert, and oriented x3. No focal deficit. Impressions: 1. Obstructive sleep apnea-hypopnea syndrome. Patient demonstrated great compliance with treatment, benefiting from treatment. 2. Obesity, patient lost 9 pounds comparing to the previous visit. 3. Diabetes mellitus. 4. Hypertension. 5. ALLERGIES, history of hayfever. 6. History of prostate cancer diagnosed in 2021. 7. Status post cholecystectomy in 2020. Plan: 1. Continue using PAP equipment every night for the whole night. 2. To change air filter at least 1-2 times per month. 3. PAP unit should stay lower then position of the head. 4. Advised patient to remove all remaining water from humidifier canister daily and make it dry after each usage. Refill canister with fresh distilled water before each usage. 5. Sleep hygiene with regular time in bed for at least 8 hours. 6. Precautions related to driving. No driving if feel any sleepiness. 7. I will maintain prescription for PAP supplies including mask, tube, filters. 8. Watching and continue losing weight. 9. Follow up visit in 6 months or earlier if patient has any problems. Thank you very much for allowing me to participate in the management of your patient. Jose Maria Hodge MD, PhD, FAASM. Diplomat of [employer] [employer], Sleep Medicine Board by [employer] Biomass Facilitator of [facility] [place]
== END ==
LOC: SLEEP 10:23
PROVIDERS: ATTEND Internal Medicine
DX: G47.33 Obstructive sleep apnea (adult) (pediatric) (principal); E11.9 Type 2 diabetes mellitus without complications; E66.9 Obesity, unspecified; I10 Essential (primary) hypertension; Z79.01 Long term (current) use of anticoagulants; Z79.4 Long term (current) use of insulin; Z79.899 Other long term (current) drug therapy; Z85.46 Personal history of malignant neoplasm of prostate; Z90.49 Acquired absence of other specified parts of digestive tract; Z99.89 Dependence on other enabling machines and devices; R50.9 Fever, unspecified; Z79.82 Long term (current) use of aspirin
CPT/HCPCS: 99212

== ENCOUNTER → 2023-05-12 | Outpatient (CLI) | payer MEDICARE ==
--- NOTE | 2023-05-12 12:06 | P.PN ---
Subjective DATE: 05/12/2023 FOLLOW UP VISIT. Patient with obstructive sleep apnea hypopnea syndrome return to sleep center for follow-up visit. Information from previous visit have been reviewed. Patient is using BPAP equipment every night for the whole night, getting PAP supplies in time. The patient does not have significant problems with the mask, PAP unit and humidification. [place] sleepiness scale is 3, which is normal. I checked information from BPAP unit and discussed it with patient in details. BPAP unit pressure 20/16 cm H2O. Usage is 100 % for more then 4 hours, average 9.5 hours per night. Leak is 25 l/m, which is in acceptable range. Apnea Hypopnea Index is 1.1, which is normal. MEDICATIONS:1. Eliquis 5 mg twice a day 2. Atorvastatin 20 mg once a day 3. Lisinopril 5 mg once a day 4. Metoprolol 100 mg once a day 5. Doxazosin 4 mg once a day 6. Trulicity 7. Fenofibrate 8. Nifedipine 30 mg once a day During physical exam: GENERAL: A pleasant patient without any distress. VITAL SIGNS: BP 145/79, HR 92, RR 18 , weight 218.4, temperature 98.3, oxygen saturation at room air 96 % . HEENT: PERRLA, EOMI.low position of soft palate, Mallapati 4 . NECK: Supple. No JVD. LUNGS: Clear to percussion and to auscultation. Good air exchange. No wheezing or rhonchi. HEART: S1, S2 regular. ABDOMEN: Soft and nontender. Slightly obese EXTREMITIES: No clubbing or cyanosis. PATENT LEGAL ASSISTANT: Awake, alert, and oriented x3. No focal deficit. Impressions: 1. Obstructive sleep apnea-hypopnea syndrome. Patient demonstrated great compliance with treatment, benefiting from treatment. 2. Obesity, patient lost 11 pounds since previous visit. 3. Hypertension. 4. Diabetes mellitus. 5. History of prostate cancer diagnosed in 2021. 6. ALLERGIES, history of hayfever. 7. Status post cholecystectomy in 2020. Plan: 1. Continue using PAP equipment every night for the whole night. 2. To change air filter at least 1-2 times per month. 3. PAP unit should stay lower then position of the head. 4. Advised patient to remove all remaining water from humidifier canister daily and make it dry after each usage. Refill canister with fresh distilled water before each usage. 5. Sleep hygiene with regular time in bed for at least 8 hours. 6. Precautions related to driving. No driving if feel any sleepiness. 7. I will maintain prescription for PAP supplies including mask, tube, filters. 8. Follow up visit in 6 months or earlier if patient has any problems. 9. Watching and continue losing weight. Thank you very much for allowing me to participate in the management of your patient. Jose Maria Hodge MD, PhD, FAASM. Diplomat of [place] [employer], Sleep Medicine Board by [employer] Beef Ribber of [facility] [place]
== END ==
LOC: 3 N SLEEP 11:27
PROVIDERS: ATTEND Internal Medicine
DX: G47.33 Obstructive sleep apnea (adult) (pediatric) (principal); E11.9 Type 2 diabetes mellitus without complications; E66.9 Obesity, unspecified; I10 Essential (primary) hypertension; Z79.899 Other long term (current) drug therapy; Z85.46 Personal history of malignant neoplasm of prostate; Z90.49 Acquired absence of other specified parts of digestive tract; Z99.89 Dependence on other enabling machines and devices; Z86.19 Personal history of other infectious and parasitic diseases; Z79.85 Long-term (current) use of injectable non-insulin antidiabetic drugs; Z79.84 Long term (current) use of oral hypoglycemic drugs
CPT/HCPCS: 99212

== ENCOUNTER → 2023-12-23 | Outpatient (CLI) | payer MEDICARE ==
[2023-12-23 10:51] VITALS: BP 147/79; PULSE 92; RESP 16; TEMP 98.2
--- NOTE | 2023-12-23 11:13 | P.PROGSL ---
Subjective DATE: 12/23/2023 FOLLOW UP VISIT. Patient with obstructive sleep apnea hypopnea syndrome return to sleep center for follow-up visit. Information from previous visit have been reviewed. Patient is using PAP equipment every night for the whole night, getting PAP supplies in time. The patient does not have significant problems with the mask, PAP unit and humidification. [place] sleepiness scale is 4. I checked information from PAP unit. PAP unit pressure 20/16 cm H2O. Usage is 100% for more then 4 hours, average 7.7 hours per night. Leak is increased to 34 l/m. Apnea Hypopnea Index is 1.3, which is normal. MEDICATIONS:1. Tolterodine, other medications please see below During physical exam: GENERAL: A pleasant patient without any distress. VITAL SIGNS: Please see below, weight is 206 pounds, BMI 35.9. HEENT: PERRLA, EOMI.low position of soft palate, Mallapati 4 . NECK: Supple. No JVD. LUNGS: Clear to percussion and to auscultation. Good air exchange. No wheezing or rhonchi. HEART: S1, S2 regular. ABDOMEN: Soft and nontender.[] EXTREMITIES: No clubbing or cyanosis. CEREAL SUPERVISOR: Awake, alert, and oriented x3. No focal deficit. Impressions: 1. Obstructive sleep apnea-hypopnea syndrome. Patient demonstrated great compliance with treatment, benefiting from treatment. 2. Obesity, BMI 35.9, patient lost 12 pounds comparing with previous visit. 3. Hypertension. 4. Diabetes mellitus. 5. History of prostate cancer diagnosed in 2021. 6. History of melanoma of the skin over the left arm. 7. History of hayfever. 8. Status post cholecystectomy in 2020. Plan: 1. Continue using PAP equipment every night for the whole night. 2. To change air filter at least 1-2 times per month. 3. PAP unit should stay lower then position of the head. 4. Advised patient to remove all remaining water from humidifier canister daily and make it dry after each usage. Refill canister with fresh distilled water before each usage. 5. Sleep hygiene with regular time in bed for at least 8 hours. 6. Precautions related to driving. No driving if feel any sleepiness. 7. I will maintain prescription for PAP supplies including mask, tube, filters. 8. Watching and continue losing weight. 9. Follow up visit in 6 months or earlier if patient has any problems. Thank you very much for allowing me to participate in the management of your patient. Jose Maria Hodge MD, PhD, FAASM. Diplomat of [place] [employer] Sleep Medicine, Sleep Medicine Board by [place] [employer] Medicine Managed Care Manager of [facility] [place] Objective - Vital Signs Vital Signs: Vital Signs Temp 98.2 F 12/23/23 10:50 Pulse 92 12/23/23 10:50 Resp 16 12/23/23 10:50 BP 147/79 12/23/23 10:50 Pulse Ox 94 L 12/23/23 10:50 FiO2 Intake & Output 12/22/23 12/23/23 12/23/23 18:59 06:59 18:59 Weight 93.44 kg Home Medications: Home Medications Medication Instructions Recorded Confirmed Type Benazepril HCl 20 mg PO DAILY 07/16/16 07/22/16 History Cholecalciferol [Vitamin D3] 2,000 unit PO DAILY 07/16/16 07/22/16 History Exenatide Microspheres [Bydureon] 2 mg SQ WEEKLY 07/16/16 07/22/16 History Fenofibrate Nanocrystallized 145 mg PO DAILY 07/16/16 12/23/23 History [Fenofibrate] Furosemide [Lasix] 20 mg PO DAILY 07/16/16 07/22/16 History Montelukast [Singulair] 10 mg PO HS 07/16/16 12/23/23 History Multivitamin [Men's Multi-Vitamin] 1 each PO DAILY 07/16/16 07/22/16 History [place]-3/Dha/Epa/Fish Oil [Fish Oil 2 each PO DAILY 07/16/16 07/22/16 History 500 mg Softgel] Pioglitazone [Actos] 15 mg PO DAILY 07/16/16 07/22/16 History Rivaroxaban [Xarelto] 15 mg PO DAILY 07/16/16 07/22/16 History Rosuvastatin Calcium 40 mg PO DAILY MDD 0600 07/16/16 07/22/16 History glipiZIDE XL [Glucotrol Xl] 10 mg PO DAILY 07/16/16 07/22/16 History atenoloL [Tenormin] 25 mg PO DAILY 07/22/16 07/22/16 History Lidocaine [Aspercreme Patch] 1 patch TRANSDERM DAILY #30 patch 09/27/18 Rx methocarbamoL [Robaxin-750] 750 mg PO TID #30 tablet 09/27/18 Rx Apixaban [Eliquis] 5 mg PO BID 12/23/23 12/23/23 History Atorvastatin [Lipitor] 20 mg PO HS 12/23/23 12/23/23 History Dapagliflozin Propanediol [Farxiga] 5 mg PO DAILY 12/23/23 12/23/23 History Doxazosin [Cardura] 4 mg PO DAILY 12/23/23 12/23/23 History Dulaglutide [Trulicity] 3 mg SQ WEEKLY 12/23/23 12/23/23 History Insulin Glargine,Hum.rec.anlog 18 units INJ DAILY 12/23/23 12/23/23 History [Lantus Solostar Pen] Metoprolol Succinate [Toprol XL] 100 mg PO DAILY 12/23/23 12/23/23 History NIFEdipine XL [Procardia Xl] 30 mg PO DAILY 12/23/23 12/23/23 History Omeprazole 40 mg PO DAILY 12/23/23 12/23/23 History lisinopriL [Zestril] 5 mg PO BID 12/23/23 12/23/23 History
== END ==
LOC: 3 N SLEEP 10:22
PROVIDERS: ATTEND Internal Medicine
DX: G47.33 Obstructive sleep apnea (adult) (pediatric) (principal); E66.9 Obesity, unspecified; I10 Essential (primary) hypertension; E11.9 Type 2 diabetes mellitus without complications; Z85.46 Personal history of malignant neoplasm of prostate; Z85.820 Personal history of malignant melanoma of skin; Z90.49 Acquired absence of other specified parts of digestive tract; Z99.89 Dependence on other enabling machines and devices; Z86.19 Personal history of other infectious and parasitic diseases; Z68.35 Body mass index [BMI] 35.0-35.9, adult; Z79.899 Other long term (current) drug therapy; Z79.01 Long term (current) use of anticoagulants; Z79.84 Long term (current) use of oral hypoglycemic drugs; Z79.4 Long term (current) use of insulin; Z79.85 Long-term (current) use of injectable non-insulin antidiabetic drugs
CPT/HCPCS: 99212

== ENCOUNTER → 2024-08-17 | Outpatient (CLI) | payer MEDICARE ==
[2024-08-17 10:42] VITALS: BP 131/78; PULSE 104; RESP 16; TEMP 97.2
--- NOTE | 2024-08-17 10:54 | P.PROGSL ---
Subjective DATE: 08/17/2024 FOLLOW UP VISIT. Patient with obstructive sleep apnea hypopnea syndrome return to sleep center for follow-up visit. Information from previous visit have been reviewed. Patient is using PAP equipment every night for the whole night, getting PAP supplies in time. The patient does not have significant problems with the mask, PAP unit and humidification. [place] sleepiness scale is 2, which is perfect. I checked information from PAP unit. BPAP unit pressure 20/16 cm H2O. Usage is 100% for more then 4 hours, average 7.8 hours per night. Leak is 34 l/m, which is in acceptable range. Apnea Hypopnea Index is 1.9, which is normal. MEDICATIONS: Lantus, fenofibrate, Eliquis, atorvastatin, lisinopril, metoprolol, doxazosin, omeprazole, nifedipine, montelukast. During physical exam: GENERAL: A pleasant patient without any distress. VITAL SIGNS: Please see below, weight is 211 lbs. HEENT: PERRLA, EOMI.low position of soft palate, Mallapati 4 . NECK: Supple. No JVD. LUNGS: Clear to percussion and to auscultation. Good air exchange. No wheezing or rhonchi. HEART: S1, S2 regular. ABDOMEN: Soft and nontender. Slightly obese EXTREMITIES: No clubbing or cyanosis. ON AIR ANNOUNCER: Awake, alert, and oriented x3. No focal deficit. Impressions: 1. Obstructive sleep apnea-hypopnea syndrome. Patient demonstrated great compliance with treatment, benefiting from treatment. 2. Mild obesity, BMI 37.3. 3. Hypertension. 4. Diabetes mellitus, blood sugar today in the morning 110. 5. History of prostate cancer. 6. History of melanoma of the skin over the left arm treated surgically. 7. Status post cholecystectomy in 2020. 8. History of hayfever. Plan: 1. Continue using PAP equipment every night for the whole night. 2. Sleep hygiene with regular time in bed for at least 7.5-8 hours 3. PAP unit should stay lower then position of the head. 4. Advised patient to remove all remaining water from humidifier canister daily and make it dry after each usage. Refill canister with fresh distilled water before each usage. 5. Watching and losing weight. 6. Precautions related to driving. No driving if feel any sleepiness. 7. I will maintain prescription for PAP supplies including mask, tube, filters. 8. Follow up visit in 8 months or earlier if patient has any problems. Thank you very much for allowing me to participate in the management of your patient. Jose Maria Hodge MD, PhD, FAASM. Diplomat of [place] [employer] Sleep Medicine, Sleep Medicine Board by [place] [employer] Medicine Sewing Techniques Demonstrator of [facility] [place] Objective - Vital Signs Vital Signs: Vital Signs Temp 97.2 F L 08/17/24 10:41 Pulse 104 H 08/17/24 10:41 Resp 16 08/17/24 10:41 BP 131/78 08/17/24 10:41 Pulse Ox 97 08/17/24 10:41 FiO2 Intake & Output 08/16/24 08/17/24 08/17/24 18:59 06:59 18:59 Weight 95.708 kg Home Medications: Home Medications Medication Instructions Recorded Confirmed Type Benazepril HCl 20 mg PO DAILY 07/16/16 07/22/16 History Cholecalciferol [Vitamin D3] 2,000 unit PO DAILY 07/16/16 07/22/16 History Exenatide Microspheres [Bydureon] 2 mg SQ WEEKLY 07/16/16 07/22/16 History Fenofibrate Nanocrystallized 145 mg PO DAILY 07/16/16 12/23/23 History [Fenofibrate] Furosemide [Lasix] 20 mg PO DAILY 07/16/16 07/22/16 History Montelukast [Singulair] 10 mg PO HS 07/16/16 12/23/23 History Multivitamin [Men's Multi-Vitamin] 1 each PO DAILY 07/16/16 07/22/16 History [place]-3/Dha/Epa/Fish Oil [Fish Oil 2 each PO DAILY 07/16/16 07/22/16 History 500 mg Softgel] Pioglitazone [Actos] 15 mg PO DAILY 07/16/16 07/22/16 History Rivaroxaban [Xarelto] 15 mg PO DAILY 07/16/16 07/22/16 History Rosuvastatin Calcium 40 mg PO DAILY MDD 0600 07/16/16 07/22/16 History glipiZIDE XL [Glucotrol Xl] 10 mg PO DAILY 07/16/16 07/22/16 History atenoloL [Tenormin] 25 mg PO DAILY 07/22/16 07/22/16 History Lidocaine [Aspercreme Patch] 1 patch TRANSDERM DAILY #30 patch 09/27/18 Rx methocarbamoL [Robaxin-750] 750 mg PO TID #30 tablet 09/27/18 Rx Apixaban [Eliquis] 5 mg PO BID 12/23/23 12/23/23 History Atorvastatin [Lipitor] 20 mg PO HS 12/23/23 12/23/23 History Dapagliflozin Propanediol [Farxiga] 5 mg PO DAILY 12/23/23 12/23/23 History Doxazosin [Cardura] 4 mg PO DAILY 12/23/23 12/23/23 History Dulaglutide [Trulicity] 3 mg SQ WEEKLY 12/23/23 12/23/23 History Insulin Glargine,Hum.rec.anlog 18 units INJ DAILY 12/23/23 12/23/23 History [Lantus Solostar Pen] Metoprolol Succinate [Toprol XL] 100 mg PO DAILY 12/23/23 12/23/23 History NIFEdipine XL [Procardia Xl] 30 mg PO DAILY 12/23/23 12/23/23 History Omeprazole 40 mg PO DAILY 12/23/23 12/23/23 History lisinopriL [Zestril] 5 mg PO BID 12/23/23 12/23/23 History
== END ==
LOC: 3 N SLEEP 10:30
PROVIDERS: ATTEND Internal Medicine
DX: E11.9 Type 2 diabetes mellitus without complications (principal); G47.33 Obstructive sleep apnea (adult) (pediatric); I10 Essential (primary) hypertension; E66.9 Obesity, unspecified; Z68.37 Body mass index [BMI] 37.0-37.9, adult; Z85.820 Personal history of malignant melanoma of skin; Z85.46 Personal history of malignant neoplasm of prostate; Z90.49 Acquired absence of other specified parts of digestive tract
CPT/HCPCS: 99212